=== PATIENT | male | born 1970 | race Caucasian/White ===

== ENCOUNTER → 2019-03-19 16:55 | Emergency (ER) | payer OTHER ==
[~2019-03-19 16:55] MED LIST: Diazepam TAB(*) 5 MG PO ONE; predniSONE TAB* 20 MG PO ONE
--- NOTE | 2019-03-19 20:01 | ED ---
Back Pain - HPI Summary HPI Summary: Patient complains of right shoulder pain radiating into right arm pain and right neck after throwing baseball with son 2 weeks ago. X-ray right shoulder negative for fracture. Patient has been evaluated by sports medicine and diagnosed with a rhomboid strain. Patient saw chiropractic afterword which helped greatly reduce pain. Patient states he ran 8 miles yesterday without any symptoms, but states pain is worse today. Denies fever, cough, sore throat, CP , SOB, N/V/V abdominal pain, change in urine, change in BM. Medical history is none. - History of Current Complaint Chief Complaint: EDNeckComplaint Stated Complaint: POSS HERNIATED DISK IN NECK PER PT Time Seen by Provider: 03/19/19 17:57 Hx Obtained From: Patient Onset/Duration: Gradual Onset, Lasting Hours Onset/Duration: Started Hours Ago Timing: Constant Severity Initially: Severe Severity Currently: Severe Pain Intensity: 9 Pain Scale Used: 0-10 Numeric Character: Sharp, Aching, Throbbing Alleviating Symptom(s): Rest Associated Signs And Symptoms: Positive: Negative - Allergies/Home Medications Allergies/Adverse Reactions: Allergies Allergy/AdvReac Type Severity Reaction Status Date / Time aspirin AdvReac Nausea Verified 03/19/19 16:57 PMH/Surg Hx/FS Hx/Imm Hx Endocrine/Hematology History: Denies: Hx Anticoagulant Therapy Cardiovascular History: Denies: Hx Pacemaker/ICD History: Denies: Hx Dialysis Musculoskeletal History: Denies: Hx Rheumatoid Arthritis, Hx Osteoporosis Sensory History: Denies: Hx Eye Prosthesis Opthamlomology History: Denies: Hx Legally Blind EENT History: Denies: Hx Deafness Neurological History: Denies: Hx Developmental Delay Psychiatric History: Denies: Hx Autism Infectious Disease History: No Infectious Disease History: Denies: Traveled Outside the [place] in Last 30 Days - Family History Known Family History: Positive: Non-Contributory - Social History Alcohol Use: Occasionally Substance Use Type: Reports: None Smoking Status (MU): Never Smoked Tobacco Review of Systems Constitutional: Negative Eyes: Negative ENT: Negative Cardiovascular: Negative Respiratory: Negative Gastrointestinal: Negative Genitourinary: Negative Musculoskeletal: Other Skin: Negative Neurological: Negative Psychological: Normal All Other Systems Reviewed And Are Negative: Yes Physical Exam - Summary Physical Exam Summary: No erythema, ecchymosis, deformity, swelling noted to back, right shoulder, right upper extremity. PMS intact distally. No pain with palpation of right shoulder, right upper extremity. Pain with palpation of right trapezius and muscle surrounding right scapula. 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 Triage Information Reviewed: Yes Vital Signs On Initial Exam: Initial Vitals Temp Pulse Resp BP Pulse Ox 98.6 F 62 18 132/90 98 03/19/19 16:57 03/19/19 16:57 03/19/19 16:57 03/19/19 16:57 03/19/19 16:57 Vital Signs Reviewed: Yes Appearance: Positive: Well-Appearing Skin: Positive: Warm Head/Face: Positive: Normal Head/Face Inspection Eyes: Positive: Normal Neck: Positive: Supple Respiratory/Lung Sounds: Positive: Clear to Auscultation Cardiovascular: Positive: Normal Abdomen Description: Positive: Nontender Musculoskeletal: Positive: Normal Neurological: Positive: Normal Psychiatric: Positive: Normal AVPU Assessment: Alert - Russell Coma Scale Best Eye Response: 4 - Spontaneous Best Motor Response: 6 - Obeys Commands Best Verbal Response: 5 - Oriented Coma Scale Total: 15 Diagnostics - Vital Signs Vital Signs Temp Pulse Resp BP Pulse Ox 03/19/19 19:02 17 03/19/19 16:57 98.6 F 62 18 132/90 98 - Laboratory Lab Statement: Any lab studies that have been ordered have been reviewed, and results considered in the medical decision making process. Back Pain Course/Dx - Course Course Of Treatment: Patient complains of right shoulder pain radiating into right arm pain and right neck after throwing baseball with son 2 weeks ago. X- ray right shoulder 03/13 negative for fracture. Patient has been evaluated by sports medicine and diagnosed with a rhomboid strain. Patient saw chiropractic afterword which helped greatly reduce pain. Patient states he ran 8 miles yesterday without any symptoms, but states pain is worse today. Denies fever, cough, sore throat, CP, SOB, N/V/V abdominal pain, change in urine, change in BM. Medical history is none. Physical exam:No erythema, ecchymosis, deformity , swelling noted to back, right shoulder, right upper extremity. PMS intact distally. No pain with palpation of right shoulder, right upper extremity. Pain with palpation of right trapezius and muscle surrounding right scapula. 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 Vital signs within normal limits. Patient had some improvement in pain with Valium 5 mg by mouth. Rx for same and prednisone. - Diagnoses Provider Diagnoses: Muscle spasm Discharge - Sign-Out/Discharge Documenting (check all that apply): Patient Departure Patient Received Moderate/Deep Sedation with Procedure: No - Discharge Plan Condition: Stable Disposition: HOME Prescriptions: Diazepam TAB(*) [Valium TAB(*)] 5 mg PO TID PRN 2 Days #6 tab MDD 3 tabs PRN Reason: Pain predniSONE TAB* [Deltasone 20 MG TAB*] 40 mg PO DAILY 5 Days #10 tab Patient Education Materials: Muscle Spasm (ED) Referrals: Miguel Spain MD [Primary Care Provider] - Femi Ferraro MD [Medical Doctor] - Additional Instructions: Take Valium as we discussed for muscle spasm pain. Take prednisone as directed. If symptoms persist follow-up with orthopedics Dr. Ferraro for further evaluation. - Billing Disposition and Condition Condition: STABLE Disposition: Home
[2019-03-19 20:11] VITALS: BP 129/82
== END | disposition home or self-care (01) ==
LOC: ED 16:55
DX: M62.838 Other muscle spasm (principal); Z88.8 Allergy status to other drugs, medicaments and biological substances
CPT/HCPCS: 99283; A9270-GY; J7512